=== PATIENT | male | born 1965 | race Caucasian/White ===

== ENCOUNTER 2016-12-19 08:12 | Day surgery (SDC) | payer OTHER ==
[~2016-12-19] VITALS: Ht 154.9 cm; Wt 69.6 kg
[2016-12-19] VITALS (9 sets, daily range): BP systolic 105–126; BP diastolic 65–74; PULSE 52–92; RESP 16–31; Ht 154.9 cm; Wt 69.6 kg
--- NOTE | 2016-12-19 09:52 | RADRPT ---
PROCEDURE: XR Chest. CLINICAL INDICATION: Right perianal fistula, preop TECHNIQUE: AP view of the chest was obtained. COMPARISON: None. FINDINGS: The cardiomediastinal silhouette is within normal limits. The lungs are clear. No pleural effusion or pneumothorax is identified. Right hemidiaphragm is mild to moderately elevated. Visualized oss eous structures are intact. IMPRESSION: No evidence of active cardiopulmonary disease. Mild to moderate elevated right hemidiaphragm. RPTAT: VV .Lv Damon MD, Date Time Electronically viewed and signed by .Lv Damon MD, on 12/19/2016 09:52 .O/
--- NOTE | 2016-12-19 10:15 | RADRPT ---
Vent Rate: 72 bpm RR Interval: 0 msec PA Interval: 144 msec QRS Duration: 84 msec QT Interval: 380 msec QTC Interval: 416 msec P-R-T Anderson: 61 - 65 - 55 degrees Normal sinus rhythm Normal ECG Electronically Signed By: Isaiah Wallace [id number]
[2016-12-19 11:01] LABS: ADD SCAN DIFF NO
[2016-12-19] MEDS ORDERED: ASPI81TA3 PO (11:03)
[2016-12-19 11:05] LABS: BASOPHILS % 0.3 % (0.0-2.0); EOSINOPHILS % 0.4 % (0.0-7.0); HEMATOCRIT 43.1 % (42.0-52.0); HEMOGLOBIN 14.4 g/dl (14.0-18.0); LYMPHOCYTES # 1.2 10^3/ul (0.8-2.9); LYMPHOCYTES % 15.6 % (15.0-51.0); MEAN CORPUSCULAR HEMOGLOBIN 28.3 pg (29.0-33.0); MEAN CORPUSCULAR HGB CONC 33.4 g/dl (32.0-37.0); MEAN CORPUSCULAR VOLUME 84.7 fl (82.0-101.0); MEAN PLATELET VOLUME 9.9 fl (7.4-10.4); MONOCYTE # 0.6 10^3/ul (0.3-0.9); MONOCYTES % 7.8 % (0.0-11.0); NEUTROPHILS % 75.5 % (39.0-77.0); PLATELET COUNT 281 10^3/UL (140-415); RED BLOOD COUNT 5.09 10^6/ul (4.70-6.10); RED CELL DISTRIBUTION WIDTH 13.2 % (11.5-14.5)
[2016-12-19 11:24] LABS: INR 1.04; PROTIME 13.6 Sec (12.2-14.2); PT RATIO 1.1
[2016-12-19 11:25] LABS: ALBUMIN 4.8 g/dl (3.3-4.9); ALBUMIN/GLOBULIN RATIO 1.37; BILIRUBIN,INDIRECT 0.7 mg/dl (0-1.1); BILIRUBIN,TOTAL 0.7 mg/dl (0.2-1.3); PARTIAL THROMBOPLASTIN TIME 29.9 Sec (25.0-35.0); TOTAL PROTEIN 8.3 g/dl (6.1-8.1)
[2016-12-19 11:32] LABS: CALCIUM 9.8 mg/dl (8.4-10.2); CREATININE 0.82 mg/dl (0.61-1.24); POTASSIUM 4.3 mmol/L (3.5-5.1)
[2016-12-19] MEDS ORDERED: MIDAZOLAM 1 MG/ML 2 ML INJ ONE (11:32)
[2016-12-19] MEDS ORDERED: PROPOFOL 20 ML ONE (11:32)
[2016-12-19] MEDS ORDERED: METOCLOPRAMIDE 10 MG INJ ONE (11:32)
[2016-12-19] MEDS ORDERED: ROCURONIUM 50 MG INJ ONE (11:32)
[2016-12-19] MEDS ORDERED: HYDROmorphONE 2 MG/ML SYG ONE (11:32)
[2016-12-19] MEDS ORDERED: BUPIVACAINE 0.25% (MPF) 30 ML INJ ONE (11:39)
[2016-12-19] MEDS ORDERED: CEFAZOLIN 1 GM INJ ONE (11:51)
[2016-12-19] MEDS ORDERED: GLYCOPYRROLATE 0.4 MG INJ ONE (11:51)
[2016-12-19] MEDS ORDERED: NEOSTIGMINE 3 MG/3 ML SYRINGE ONE (11:51)
[2016-12-19] MEDS ORDERED: SOD CHLORIDE 0.9% 1,000 ML IV ONE (12:00)
[2016-12-19] MEDS ORDERED: CEFAZOLIN 2 GM/50 ML (PMX) 50 ML IVPB ONE (12:00)
[2016-12-19] MEDS ORDERED: METOCLOPRAMIDE 10 MG INJ IV PRN (12:00)
[2016-12-19] MEDS ORDERED: ONDANSETRON 4 MG INJ IV PRN (12:00)
[2016-12-19] MEDS ORDERED: MEPERIDINE 25 MG INJ IV PRN (12:00)
[2016-12-19] MEDS ORDERED: DIPHENHYDRAMINE 50 MG INJ IV PRN (12:00)
[2016-12-19] MEDS ORDERED: HYDROmorphONE (0.2 MG/ML) 10ML SYG IV PRN ×3 (12:00)
[2016-12-19] MEDS ORDERED: OXYCODONE/ACETAMINOPHEN (5/325) TAB PO PRN ×2 (12:00)
[2016-12-19] MEDS ORDERED: KETOROLAC 30 MG INJ ONE (12:12)
--- NOTE | 2016-12-19 12:24 | OPR ---
Date/Time of Note Date/Time of Note DATE: 12/19/16 TIME: 12:23 Operative Report Preoperative Diagnosis right perianal fistula Postoperative Diagnosis same Operation/Procedure Performed rigid proctoscopy right perianal fistulectomy and fistulotomy therapeutic injection of subcutaneous marcaine Surgeon: Blair FORTUNE Specimens right perianal fistula Blair FORTUNE Dec 19, 2016 12:24
--- NOTE | 2016-12-19 13:31 | OPR ---
DATE OF OPERATION: 12/19/2016 INDICATIONS: This is a 51-year-old male with recurrent right perianal fistula. Risks, alternatives , benefits, and personnel were discussed with the patient. Patient expressed his understanding and consents to the operation. PREOPERATIVE DIAGNOSIS: Recurrent right perianal fistula. POSTOPERATIVE DIAGNOSIS: Recurrent right perianal fistula. OPERATIONS PERFORMED: 1. Rigid proctoscopy. 2. Right perianal fistulectomy and fistulotomy. 3. Therapeutic injection of subcutaneous Marcaine. SURGEON: Ella Roth MD SPECIMEN: Right perianal fistula. COMPLICATIONS: None. ANESTHESIA: General. DESCRIPTION OF PROCEDURE: The patient taken to the OR and prepped and draped in usual sterile fash ion. Surgical timeout was performed. IV antibiotics were given. Rigid proctoscopy was performed. There is no evidence of any masses or lesions. Right perianal fistulas are identified. The disk p ortion of tissue was excised around the perianal fistula. Lacrimal duct probes were used to identif y the fistula tract. The fistula tract was cauterized with lacrimal duct probes. There was good he mostasis. Local anesthesia was injected and dressings were applied. Dictated By: ELLA FLETCHER/AISSATOU Conf#: [id number] DID#: [id number]
== END 2016-12-19 17:52 | disposition home or self-care (01) ==
LOC: SDS 08:12
PROVIDERS: ATTEND Surgery
DX: K60.2 Anal fissure, unspecified (principal)
CPT/HCPCS: 45300; 46270; 71010; 80053; 85025; 85610; 85730; 88304; 93005; J0690; J1170; J1885; J2250; J2710; J2765; Z7512; Z7610